=== PATIENT | female | born 1960 | race American Indian/Alaskan Native ===

== ENCOUNTER 2019-02-02 18:30 | Emergency (ER) | payer MEDICAID, OTHER ==
[2019-02-02 18:51] VITALS: BP 132/90
[2019-02-02] MEDS ORDERED: ACETAMINOPHEN 500 MG TAB PO ONE (19:51)
[2019-02-02] MEDS ORDERED: IBUPROFEN 600 MG TAB PO ONE (19:51)
--- NOTE | 2019-02-02 20:43 | XRay Report ---
RIGHT HIP AND PELVIS 2 VIEWS INDICATION: Pain - fall. COMPARISON: No relevant prior imaging study available. FINDINGS: Right hip arthroplasty has a satisfactory appearance. No loosening is seen. No periprosthetic fractur e is seen about the right hip or within the included pelvis. Left hip arthroplasty is noted. IMPRESSION: 1. No acute findings. Signer Name: Pasha Peng MD Signed: 02/02/2019 8:39 PM Workstation Name: [id number]
--- NOTE | 2019-02-02 20:44 | XRay Report ---
RIGHT HAND 3 VIEWS INDICATION: pain - fall. COMPARISON: No relevant prior imaging study available. FINDINGS: No acute, displaced fracture or dislocation is seen. No foreign bodies. No significant degenerative c hanges. IMPRESSION: 1. No acute findings. Signer Name: Pasha Peng MD Signed: 02/02/2019 8:40 PM Workstation Name: [id number]
--- NOTE | 2019-02-02 20:45 | XRay Report ---
RIGHT SHOULDER 3 VIEWS INDICATION: Pain - fall. COMPARISON: No relevant prior imaging study available. FINDINGS: No acute, displaced fracture or dislocation is seen. The humeral head is somewhat high riding, this c ould be seen in the setting of rotator cuff pathology. IMPRESSION: 1. No acute fracture or dislocation. 2. Somewhat high riding humeral head could be seen in the setting of rotator cuff pathology. Signer Name: Pasha Peng MD Signed: 02/02/2019 8:41 PM Workstation Name: [id number]
--- NOTE | 2019-02-02 21:21 | Emergency Department Report ---
ED Fall HPI - General Chief Complaint: Extremity Injury, Upper Stated Complaint: POSS BROKEN (R) HAND Source: patient Mode of arrival: Ambulatory - History of Present Illness Initial Comments: Patient is a 58-year-old -[place] female with a history of hypertension who presents to the ED with complaint of acute onset persistent severe right hip, right hand and right shoulder pains after she slipped on a wet floor and fell down at the grocery store 8 hours ago. Patient states that the pain has been worsening the last 4 hours. Patient denies dizziness, loss of consciousness, neck pain, chest pain, shortness of breath, back pain, head or neck injuries, numbness and tingling or weakness of upper and lower extremities bilaterally. MD Complaint: fall, other (right shoulder, right hip and right hand pain) -: Sudden, hour(s) (8) Fall From: standing When Fall Occurred: other (8 hours ago) Fall Witnessed: yes, by family, yes, by bystander Place Fall Occurred: other (In a grocery store) Loss of Consciousness: none Prolonged Down Time?: no Symptoms Prior to Fall: none Location: pelvis (right hip), other (right hand and shoulder) Location - Extremities: Right: Shoulder, Hand Severity: severe Severity scale (0 -10): 7 Quality: sharp, aching Context: tripped/slipped Associated Symptoms: denies. denies: headache, neck pain, numbness, weakness, chest paint, shortness of breath, abdominal pain, hematuria, unable to walk, lightheaded, vertigo, confusion, other - Related Data Home Medications Medication Instructions Recorded Confirmed Last Taken Cristian Cit/Mag/D3/Zn/Vp Marketing/Moe/Bor 1 each PO BID 12/13/14 12/23/14 12/22/14 [Citracal-Vit D + Magnesium Tab] Etodolac 400 mg PO BID 12/13/14 12/23/14 12/22/14 Lisinopril/Hydrochlorothiazide 1 tab PO QDAY 12/13/14 12/23/14 12/23/14 [Zestoretic 20-12.5 mg] PARoxetine [Paxil] 20 mg PO DAILY 12/13/14 12/23/14 12/22/14 Trazodone HCl [traZODone] 150 mg PO PRN 12/13/14 12/23/14 12/22/14 Vitamin B Complex Vit C No.4 150 mg PO DAILY 12/13/14 12/23/14 12/22/14 [Super B Complex] hydrOXYzine PAMOATE [Vistaril] 25 mg PO DAILY 12/13/14 12/23/14 12/22/14 Previous Rx's Medication Instructions Recorded Last Taken Type methOCARBAMOL [Robaxin TAB] 500 mg PO Q8H PRN #21 02/02/19 Unknown Rx traMADol [Ultram 50 MG tab] 50 mg PO Q6HR PRN #15 02/02/19 Unknown Rx Allergies Allergy/AdvReac Type Severity Reaction Status Date / Time No Known Allergies Allergy Unverified 09/09/15 17:03 ED Review of Systems ROS: Stated complaint: POSS BROKEN (R) HAND Other details as noted in HPI Constitutional: denies: chills, fever Eyes: denies: eye pain, eye discharge, vision change ENT: denies: ear pain, throat pain Respiratory: denies: cough, shortness of breath, wheezing Cardiovascular: denies: chest pain, palpitations Endocrine: no symptoms reported Gastrointestinal: denies: abdominal pain, nausea, diarrhea Genitourinary: denies: urgency, dysuria, discharge Musculoskeletal: joint swelling (right hand), arthralgia (right shoulder, hip and hand), myalgia. denies: back pain Skin: denies: rash, lesions Neurological: denies: headache, weakness, paresthesias Psychiatric: denies: anxiety, depression Hematological/Lymphatic: denies: easy bleeding, easy bruising ED Past Medical Hx - Past Medical History Previous Medical History?: Yes Hx Hypertension: Yes (') Hx Psychiatric Treatment: Yes (depression, anxiety) Additional medical history: Hep C - Surgical History Past Surgical History?: Yes Hx Cholecystectomy: Yes Additional Surgical History: R hip replacement - Social History Smoking Status: Current Every Day Smoker Substance Use Type: None - Medications Home Medications: Home Medications Medication Instructions Recorded Confirmed Last Taken Type Cristian Cit/Mag/D3/Zn/Vp Marketing/Moe/Bor 1 each PO BID 12/13/14 12/23/14 12/22/14 History [Citracal-Vit D + Magnesium Tab] Etodolac 400 mg PO BID 12/13/14 12/23/14 12/22/14 History Lisinopril/Hydrochlorothiazide 1 tab PO QDAY 12/13/14 12/23/14 12/23/14 History [Zestoretic 20-12.5 mg] PARoxetine [Paxil] 20 mg PO DAILY 12/13/14 12/23/14 12/22/14 History Trazodone HCl [traZODone] 150 mg PO PRN 12/13/14 12/23/14 12/22/14 History Vitamin B Complex Vit C No.4 150 mg PO DAILY 12/13/14 12/23/14 12/22/14 History [Super B Complex] hydrOXYzine PAMOATE [Vistaril] 25 mg PO DAILY 12/13/14 12/23/14 12/22/14 History methOCARBAMOL [Robaxin TAB] 500 mg PO Q8H PRN #21 02/02/19 Unknown Rx traMADol [Ultram 50 MG tab] 50 mg PO Q6HR PRN #15 02/02/19 Unknown Rx ED Physical Exam - General Limitations: No Limitations General appearance: alert, in no apparent distress - Head Head exam: Present: atraumatic, normocephalic - Eye Eye exam: Present: normal appearance, PERRL, EOMI Pupils: Present: normal accommodation - ENT ENT exam: Present: normal exam, normal orophraynx, mucous membranes moist, TM's normal bilaterally, normal external ear exam - Neck Neck exam: Present: normal inspection, full ROM. Absent: tenderness, meningismus, lymphadenopathy, thyromegaly - Respiratory Respiratory exam: Present: normal lung sounds bilaterally. Absent: respiratory distress, wheezes, rales, chest wall tenderness - Cardiovascular Cardiovascular Exam: Present: regular rate, normal rhythm, normal heart sounds. Absent: systolic murmur, diastolic murmur, rubs, gallop - GI/Abdominal GI/Abdominal exam: Present: soft, normal bowel sounds. Absent: tenderness, guarding, hyperactive bowel sounds, hypoactive bowel sounds, organomegaly, mass - Extremities Exam Extremities exam: Present: normal inspection, tenderness (Palpable right hip, shoulder and hand tenderness). Absent: normal capillary refill, pedal edema, joint swelling - Back Exam Back exam: Present: normal inspection, full ROM. Absent: tenderness, muscle spasm, paraspinal tenderness - Neurological Exam Neurological exam: Present: alert, oriented X3, CN II-XII intact, normal gait, reflexes normal - Psychiatric Psychiatric exam: Present: normal affect, normal mood - Skin Skin exam: Present: warm, dry, intact, normal color. Absent: rash ED Course Vital Signs 02/02/19 18:50 Temperature 98.2 F Pulse Rate 93 H Respiratory 20 Rate Blood Pressure 132/90 O2 Sat by Pulse 96 Oximetry - Reevaluation(s) Reevaluation #1: 02/02/19 21:22 The patient is a 58-year-old female who presented to the ED with right shoulder, right hip and right hand pain after she slipped and fell down across the distal over 8 hours ago. In the ED, patient is alert and oriented 3 and is not in distress. Right shoulder x-ray shows no acute fractures or subluxations. Right hand x-ray shows no acute fractures or subluxations. Right hip x-rays also shows no acute fractures and subluxations. Patient demanded Percocet for pain stating that she is allergic to Tylenol and ibuprofen. Patient was discharged home on prescription of Robaxin and Ultram and advised to follow-up with her primary care physician in 2-3 days for reevaluation or return to the ED immediately if symptoms get worse. ED Medical Decision Making - Radiology Data Radiology results: report reviewed, image reviewed Right shoulder x-ray shows no acute fractures or subluxations. Right hip x-ray shows no acute fractures or subluxations. Right hand x-ray shows no acute fractures or subluxations. - Medical Decision Making The patient is a 58-year-old female who presented to the ED with right shoulder, right hip and right hand pain after she slipped and fell down across the distal over 8 hours ago. In the ED, patient is alert and oriented 3 and is not in distress. Right shoulder x-ray shows no acute fractures or subluxations. Right hand x-ray shows no acute fractures or subluxations. Right hip x-rays also shows no acute fractures and subluxations. Patient demanded Percocet for pain stating that she is allergic to Tylenol and ibuprofen. Patient was discharged home on prescription of Robaxin and Ultram and advised to follow-up with her primary care physician in 2-3 days for reevaluation or return to the ED immediately if symptoms get worse - Differential Diagnosis Shoulder fracture; hip contusion; Hand fracture; hand sprain Critical care attestation.: If time is entered above; I have spent that time in minutes in the direct care of this critically ill patient, excluding procedure time. ED Disposition Clinical Impression: Sprain of right shoulder Qualifiers: Encounter type: initial encounter Shoulder sprain type: unspecified sprain Qualified Code(s): S43.401A - Unspecified sprain of right shoulder joint, initial encounter Sprain of right hand Qualifiers: Encounter type: initial encounter Qualified Code(s): S63.91XA - Sprain of unspecified part of right wrist and hand, initial encounter Contusion of right hip and thigh Qualifiers: Encounter type: initial encounter Qualified Code(s): S70.01XA - Contusion of right hip, initial encounter; S70.11XA - Contusion of right thigh, initial encounter Disposition: TO HOME OR SELFCARE Is pt being admited?: No Does the pt Need Aspirin: No Condition: Stable Instructions: Hip Sprain (ED), Shoulder Sprain (ED), Hand Sprain (ED) Additional Instructions: Take medication with food, drink plenty of fluids and follow-up with your primary care physician in 5-7 days for reevaluation. Return to the ED immediately if symptoms get worse. Prescriptions: methOCARBAMOL [Robaxin TAB] 500 mg PO Q8H PRN #21 PRN Reason: Pain traMADol [Ultram 50 MG tab] 50 mg PO Q6HR PRN #15 PRN Reason: Pain Referrals: PRIMARY CARE, [Primary Care Provider] - 3-5 Days Time of Disposition: 21:19 Print Language: DUTCH
== END 2019-02-02 21:49 | disposition home or self-care (01) ==
LOC: ED 18:30
DX: S43.401A Unspecified sprain of right shoulder joint, initial encounter (principal); S63.91XA Sprain of unspecified part of right wrist and hand, initial encounter; S70.01XA Contusion of right hip, initial encounter; S70.11XA Contusion of right thigh, initial encounter; I10 Essential (primary) hypertension; F32.9 Major depressive disorder, single episode, unspecified; F41.9 Anxiety disorder, unspecified; Z90.79 Acquired absence of other genital organ(s); F17.200 Nicotine dependence, unspecified, uncomplicated; Z79.899 Other long term (current) drug therapy; W01.0XXA Fall on same level from slipping, tripping and stumbling without subsequent striking against object, initial encounter; Y93.01 Activity, walking, marching and hiking; Y92.512 Supermarket, store or market as the place of occurrence of the external cause; Y99.8 Other external cause status

== ENCOUNTER 2021-11-09 14:49 | Emergency (ER) | payer MEDICAID ==
--- NOTE | 2021-11-09 16:40 | XRay Report ---
EXAMINATION: XR tibia fibula 2V RT, INDICATION / CLINICAL INFORMATION: FALL COMPARISON: None available. FINDINGS: BONES / JOINT(S): No acute fracture or subluxation. SOFT TISSUES: No significant abnormality. ADDITIONAL FINDINGS: None. IMPRESSION: No acute process. Signer Name: Marlon Newton MD Signed: 11/09/2021 4:36 PM Workstation Name: [id number]
--- NOTE | 2021-11-09 16:40 | XRay Report ---
XR shoulder 2+V LT INDICATION / CLINICAL INFORMATION: FALL. COMPARISON: None available. FINDINGS: BONES/JOINT(S): No acute fracture or subluxation. No significant degenerative changes. No focal bone erosions or focal osteopenia to suggest inflammatory arthropathy. SOFT TISSUES: No significant abnormality. ADDITIONAL FINDINGS: None. Signer Name: Steve Galindo MD Signed: 11/09/2021 4:35 PM Workstation Name: [id number]
--- NOTE | 2021-11-09 16:50 | Emergency Department Report ---
ED General Adult HPI - General Chief complaint: Fall Stated complaint: LT SHOULDER PAIN,EYE LACERATION, S/P FALL PUI?: No Time Seen by Provider: 11/09/21 15:57 Source: patient, EMS Mode of arrival: Wheelchair Limitations: No Limitations - History of Present Illness Initial comments: This is a 61-year-old female came in today after she sustained a fall down the stairs after she tripped. According patient her right tibia hurts and also left shoulder hurts as well. Patient stated she hit her head but denies loss of consciousness. Patient denies any other symptoms denies fever chill night sweat dizziness blurred vision lightheadedness ear pain tinnitus runny nose sore throat loss of taste or smell chest pain palpitation short breath cough abdominal pain nausea vomiting diarrhea constipation dysuria and heat or cold intolerance. Severity scale (0 -10): 10 - Related Data Home Medications Medication Instructions Recorded Confirmed Last Taken Cristian Cit/Mag/D3/Zn/Frit Mixer And Burner/Moe/Bor 1 each PO BID 12/13/14 12/23/14 12/22/14 [Citracal-D3 Plus Magnesium Tab] Etodolac 400 mg PO BID 12/13/14 12/23/14 12/22/14 Lisinopril/Hydrochlorothiazide 1 tab PO QDAY 12/13/14 12/23/14 12/23/14 [Zestoretic 20-12.5 mg] PARoxetine [Paxil] 20 mg PO DAILY 12/13/14 12/23/14 12/22/14 Trazodone HCl [traZODone] 150 mg PO PRN 12/13/14 12/23/14 12/22/14 Vitamin B Complex Vit C No.4 150 mg PO DAILY 12/13/14 12/23/14 12/22/14 [Super B Complex] hydrOXYzine PAMOATE [Vistaril] 25 mg PO DAILY 12/13/14 12/23/14 12/22/14 Previous Rx's Medication Instructions Recorded Last Taken Type methOCARBAMOL [Robaxin TAB] 500 mg PO Q8H PRN #21 02/02/19 Unknown Rx traMADoL [Ultram 50 MG tab] 50 mg PO Q6HR PRN #15 02/02/19 Unknown Rx Amoxicillin/Potassium Clav 1 each PO Q12H 5 Days #10 11/09/21 Unknown Rx [Augmentin 500-125 Tablet] Allergies Allergy/AdvReac Type Severity Reaction Status Date / Time No Known Allergies Allergy Unverified 11/09/21 14:56 ED Review of Systems ROS: Stated complaint: LT SHOULDER PAIN,EYE LACERATION, S/P FALL Other details as noted in HPI Comment: All other systems reviewed and negative Constitutional: no symptoms reported Eyes: as per HPI ENT: as per HPI Respiratory: no symptoms reported, see HPI Cardiovascular: as per HPI Endocrine: no symptoms reported, see HPI Gastrointestinal: as per HPI Genitourinary: as per HPI Musculoskeletal: as per HPI, arthralgia (RIGHT TIBIAL AND LEFT SHOULDER) Skin: other (FORHEAD LACERATION) Neurological: as per HPI Psychiatric: as per HPI Hematological/Lymphatic: as per HPI ED Past Medical Hx - Past Medical History Previous Medical History?: Yes Hx Hypertension: Yes () Hx Arthritis: Yes (Osteoarthritis) Hx Psychiatric Treatment: Yes (depression, anxiety) Additional medical history: Hep C - Surgical History Hx Cholecystectomy: Yes Additional Surgical History: R and Left hip replacement - Social History Smoking Status: Current Every Day Smoker Substance Use Type: None - Medications Home Medications: Home Medications Medication Instructions Recorded Confirmed Last Taken Type Cristian Cit/Mag/D3/Zn/Frit Mixer And Burner/Moe/Bor 1 each PO BID 12/13/14 12/23/14 12/22/14 History [Citracal-D3 Plus Magnesium Tab] Etodolac 400 mg PO BID 12/13/14 12/23/14 12/22/14 History Lisinopril/Hydrochlorothiazide 1 tab PO QDAY 12/13/14 12/23/14 12/23/14 History [Zestoretic 20-12.5 mg] PARoxetine [Paxil] 20 mg PO DAILY 12/13/14 12/23/14 12/22/14 History Trazodone HCl [traZODone] 150 mg PO PRN 12/13/14 12/23/14 12/22/14 History Vitamin B Complex Vit C No.4 150 mg PO DAILY 12/13/14 12/23/14 12/22/14 History [Super B Complex] hydrOXYzine PAMOATE [Vistaril] 25 mg PO DAILY 12/13/14 12/23/14 12/22/14 History methOCARBAMOL [Robaxin TAB] 500 mg PO Q8H PRN #21 02/02/19 Unknown Rx traMADoL [Ultram 50 MG tab] 50 mg PO Q6HR PRN #15 02/02/19 Unknown Rx Amoxicillin/Potassium Clav 1 each PO Q12H 5 Days #10 11/09/21 Unknown Rx [Augmentin 500-125 Tablet] ED Physical Exam - General Limitations: No Limitations General appearance: alert, in no apparent distress, appears intoxicated - Eye Eye exam: Present: normal appearance, PERRL, EOMI Pupils: Present: normal accommodation - ENT ENT exam: Present: normal exam, mucous membranes moist - Neck Neck exam: Present: normal inspection, full ROM - Respiratory Respiratory exam: Present: normal lung sounds bilaterally - Cardiovascular Cardiovascular Exam: Present: regular rate, normal rhythm, normal heart sounds - GI/Abdominal GI/Abdominal exam: Present: soft - Extremities Exam Extremities exam: Present: normal inspection, full ROM, normal capillary refill - Back Exam Back exam: Present: normal inspection, full ROM - Neurological Exam Neurological exam: Present: alert, oriented X3, CN II-XII intact - Psychiatric Psychiatric exam: Present: normal affect, normal mood - Skin Skin exam: Present: normal color ED Course Vital Signs 11/09/21 11/09/21 11/09/21 14:52 15:13 15:19 Temperature 97.9 F 97.7 F Pulse Rate 90 98 H 55 L Respiratory 18 21 Rate Blood Pressure 157/96 Blood Pressure 200/100 157/96 [Left] O2 Sat by Pulse 98 99 Oximetry 11/09/21 11/09/21 17:10 20:01 Temperature Pulse Rate 52 L 72 Respiratory 14 16 Rate Blood Pressure Blood Pressure 150/92 139/65 [Left] O2 Sat by Pulse 99 98 Oximetry - Laceration /Wound Repair Left Upper Anterior Medial Face Wound Location: face Wound Length (cm): 3 Wound's Depth, Shape: into muscle Wound Explored: clean Irrigated w/ Saline (ccs): 250 Betadine Prep?: Yes Anesthesia: 1% Lidocaine Volume Anesthetic (ccs): 7 Wound Debrided: minimal Wound Repaired With: sutures Suture Size/Type: 5:0 Number of Sutures: 9 Layer Closure?: No Sterile Dressing Applied?: Yes Progress: patient tolerated the procedure well without any complications. Critical care attestation.: If time is entered above; I have spent that time in minutes in the direct care of this critically ill patient, excluding procedure time. ED Disposition Clinical Impression: Facial laceration, Shoulder contusion, Contusion of right tibia Disposition: 01 HOME / SELF CARE / HOMELESS Is pt being admited?: No Does the pt Need Aspirin: No Condition: Stable Instructions: Laceration Care, Adult Additional Instructions: Please take antibiotics prescribed for you and also have your sutures removed in 7 days. Return to the ER if any new symptom or concern or worsening. Prescriptions: Amoxicillin/Potassium Clav [Augmentin 500-125 Tablet] 1 each PO Q12H 5 Days #10 Time of Disposition: 21:02
[2021-11-09 16:58] LABS: Bilirubin,Urine NEG (Negative); Blood,Urine SM (Negative); Color,Urine Straw (Yellow); Protein,Urine <15 mg/dL mg/dL (Negative); Urobilinogen,Urine < 2.0 mg/dL (<2.0)
[2021-11-09 17:00] LABS: Mucus,Urine FEW /HPF; WBC,Urine < 1.0 /HPF (0.0-6.0)
[2021-11-09] MEDS ORDERED: LIDOCAINE 1%/EPINEPHRINE 1:100,000 VIAL (20 ML) INFILTRATI NR (17:00)
--- NOTE | 2021-11-09 17:16 | Cat Scan Report ---
CT cervical spine wo con INDICATION: FALL. TECHNIQUE: Axial CT images of the cervical spine were obtained. Sagittal and coronal reformatted images were pro duced. All CT scans at this location are performed using CT dose reduction for ALARA by means of auto mated exposure control. COMPARISON: None available. FINDINGS: ALIGNMENT: Normal alignment. VERTEBRAE: No fracture. Vertebral body heights are preserved. C1 and C2 are congruent. SPONDYLOSIS: Multilevel osseous foraminal narrowing. SOFT TISSUES: No significant soft tissue abnormality. ADDITIONAL FINDINGS: No significant additional findings. IMPRESSION: 1. No fracture of the cervical spine. Signer Name: Raza Haskins MD Signed: 11/09/2021 5:12 PM Workstation Name: [id number]
--- NOTE | 2021-11-09 17:19 | Cat Scan Report ---
CT HEAD WITHOUT CONTRAST INDICATION / CLINICAL INFORMATION: FALL. Head injury. TECHNIQUE: All CT scans at this location are performed using CT dose reduction for ALARA by means of automated e xposure control. COMPARISON: None available. FINDINGS: HEMORRHAGE: No evidence of intracranial hemorrhage or extra-axial fluid collection. EXTRA-AXIAL SPACES: Cortical sulci, sylvian fissures and basilar cisterns have an unremarkable appear ance. VENTRICULAR SYSTEM: The third and lateral ventricles are of normal size and configuration. CEREBRAL PARENCHYMA: No areas of abnormal brain parenchymal attenuation are identified. There is no i ndication of recent infarction. MIDLINE SHIFT OR HERNIATION: There is no mass effect. CEREBELLUM / BRAINSTEM: Brainstem and cerebellum have an unremarkable appearance. MIDLINE STRUCTURES:No abnormalities of the pituitary gland or pineal region are identified. INTRACRANIAL VESSELS:No abnormalities are identified on this noncontrast head CT. ORBITS: Deformity of the left lamina papyracea is noted consistent with remote medial wall blowout fr acture seen on coronal scans and series: CT #601, image 18. The orbits have an otherwise unremarka ble appearance. SOFT TISSUES of HEAD: There is evidence of a scalp laceration involving the forehead just to the righ t of the midline. CALVARIUM: Evaluation of bone windows reveals no abnormalities. Incidental note is made of prominent pneumatization of the anterior clinoid processes bilaterally. PARANASAL SINUSES / MASTOID AIR CELLS: Mucosal thickening is present at the basis of both maxillary s inuses, right worse than left. Paranasal sinuses otherwise appear clear as do the mastoid air cells. IMPRESSION: 1. No significant intracranial abnormality. 2. Right forehead scalp laceration. Signer Name: Leonel Calloway MD Signed: 11/09/2021 5:15 PM Workstation Name: [id number]
[2021-11-09] MEDS ORDERED: LIDOCAINE (2%) 20 MG/1 ML VIAL 20 ML MDV INFILTRATI ONE (17:22)
[2021-11-09] MEDS ORDERED: traMADol 50 MG TAB PO ONE (17:24)
[2021-11-09 20:02] VITALS: BP 139/65
[2021-11-09] MEDS ORDERED: AMOXICILLIN/K CLAV 875/125MG TAB PO ONE (21:04)
== END 2021-11-09 22:14 | disposition home or self-care (01) ==
LOC: ED 14:49
DX: S01.81XA Laceration without foreign body of other part of head, initial encounter (principal); S40.012A Contusion of left shoulder, initial encounter; S80.11XA Contusion of right lower leg, initial encounter; I10 Essential (primary) hypertension; M19.90 Unspecified osteoarthritis, unspecified site; F32.A Depression, unspecified; Z90.49 Acquired absence of other specified parts of digestive tract; F17.200 Nicotine dependence, unspecified, uncomplicated; W19.XXXA Unspecified fall, initial encounter; Y93.89 Activity, other specified; Y92.89 Other specified places as the place of occurrence of the external cause; Y99.8 Other external cause status
CPT/HCPCS: 12002; 70450; 72125; 73030; 73590; 81001; 99285; J3490